=== PATIENT | male | born 1960 | race Caucasian/White ===

== ENCOUNTER 2019-11-01 23:26 | Observation (INO) ==
[2019-11-01] MEDS ORDERED: Amiodarone Premix 360 MG/200 ML BAG IVC ONE (23:51)
[2019-11-02] MEDS ORDERED: Amiodarone Premix 360 MG/200 ML BAG IVC ONE (00:06)
[2019-11-02 00:31] LABS: Basophils # 0.1 K/mcL (0.0-0.2); Basophils % 0.4 %; Eosinophils # 0.2 K/mcL (0.0-0.6); Eosinophils % 1.6 %; Hematocrit 46.1 % (37.5-50.1); Hemoglobin 15.8 g/dL (12.9-16.9); Immature Granulocytes % 0.4 % (0-4); Lymphocytes # 1.9 K/mcL (0.6-4.6); Lymphocytes % 15.4 %; Mean Corpuscular HGB Conc 34.3 g/dL (31.6-35.5); Mean Corpuscular Hemoglobin 31.2 pg (28.0-33.3); Mean Corpuscular Volume 90.9 fL (83.0-100.0); Monocytes # 0.7 K/mcL (0.0-1.3); Monocytes % 5.7 %; Neutrophils # 9.4 K/mcL (1.6-8.9); Platelet Count 119 K/mcL (140-400); Red Blood Count 5.07 M/mcL (4.19-5.50); Red Cell Distribution Width 13.3 % (11.5-14.5); Segmented Neutrophils % 76.5 %; White Blood Count 12.2 K/mcL (4.3-11.1)
[2019-11-02 00:36] LABS: INR 1.1; Prothrombin Time 12.3 Seconds (9.4-12.1)
[2019-11-02 00:39] LABS: Activated Partial Thrombo Time 37.1 Seconds (26.0-36.0)
[2019-11-02 00:50] LABS: BUN/Creatinine Ratio 20 (6-26); Blood Urea Nitrogen 26 mg/dL (8-23); Calcium 8.6 mg/dL (8.6-10.3); Carbon Dioxide 21 mEq/L (23-29); Chloride 95 mEq/L (98-107); Glucose 456 mg/dL (70-105); Osmolality,Calculated 299 (280-300); Potassium 3.5 mEq/L (3.5-5.1); Sodium 132 mEq/L (136-145); eGFR For African Americans > 60 (> 60); eGFR For Non-African Americans 56 (> 60)
[2019-11-02 02:14] LABS: Bilirubin,Urine Negative (Negative); Blood,Urine Negative (Negative); Clarity,Urine Clear (Clear); Color,Urine Yellow (Yellow); Glucose,Urine (UA) Normal (Normal); Ketones,Urine Negative (Negative); Leukocyte Esterase,Urine Small (Negative); Nitrite,Urine Negative (Negative); PH,Urine 5.5 pH Units (5.0-8.0); Protein,Urine 30 mg/dL (Neg-Trace); Specific Gravity,Urine 1.019 (1.010-1.025); Urobilinogen,Urine Normal (Normal)
[2019-11-02 02:16] LABS: Bacteria,Urine None Seen per hpf (None-Few); Hyaline Casts,Urine None Seen per lpf (None-Few); RBC,Urine 0-3 per hpf (0-3); Squamous Epithelial Cell,Urine Many per lpf (None-Few)
[2019-11-02 03:18] LABS: VBG HCO3 26 mEq/L (21-27); VBG PCO2 51 mmHg (41-51); VBG PH 7.31 pH Units (7.32-7.42); VBG PO2 62 mmHg (25-50)
[2019-11-02] MEDS ORDERED: Potassium Chloride Elixir 20 MEQ/15 ML UDC PO ONE (05:00)
[2019-11-02] MEDS ORDERED: Ondansetron 4 MG/2 ML VIAL IVP PRN (06:04)
[2019-11-02] MEDS ORDERED: Naloxone 0.4 MG/ML INJ IVP PRN (06:04)
[2019-11-02] MEDS ORDERED: D5% in Water 1,000 ML IVC PRN (06:10)
[2019-11-02] MEDS ORDERED: Dextrose Gel 15 GM/37.5 ML TUBE PO PRN ×2 (06:10)
[2019-11-02] MEDS ORDERED: *HR* Dextrose 50 % in Water (Syg) 50 ML SYRINGE IVP PRN (06:10)
[2019-11-02] MEDS: 0.9 % Sodium Chloride 1,000 ML IVC SCH ×3 (06:12→08:00)
[2019-11-02 06:23] LABS: Basophils # 0.1 K/mcL (0.0-0.2); Basophils % 0.5 %; Eosinophils # 0.2 K/mcL (0.0-0.6); Eosinophils % 1.6 %; Hematocrit 47.9 % (37.5-50.1); Hemoglobin 16.5 g/dL (12.9-16.9); Immature Granulocytes % 0.4 % (0-4); Lymphocytes # 2.9 K/mcL (0.6-4.6); Lymphocytes % 28.1 %; Mean Corpuscular HGB Conc 34.4 g/dL (31.6-35.5); Mean Corpuscular Hemoglobin 30.6 pg (28.0-33.3); Mean Corpuscular Volume 88.9 fL (83.0-100.0); Mean Platelet Volume 10.5 fL (9.4-12.4); Monocytes # 0.7 K/mcL (0.0-1.3); Monocytes % 6.3 %; Neutrophils # 6.6 K/mcL (1.6-8.9); Platelet Count 129 K/mcL (140-400); Red Blood Count 5.39 M/mcL (4.19-5.50); Red Cell Distribution Width 13.4 % (11.5-14.5); Segmented Neutrophils % 63.1 %; White Blood Count 10.4 K/mcL (4.3-11.1)
[2019-11-02 06:30] LABS: Prothrombin Time 11.3 Seconds (9.4-12.1)
[2019-11-02] MEDS: Amiodarone Premix 360 MG/200 ML BAG IVC SCH ×2 (06:30→17:54)
[2019-11-02 06:44] LABS: Albumin 4.4 g/dL (3.5-5.7); Albumin/Globulin Ratio 1.9 (1.1-2.2); Bilirubin,Total 0.6 mg/dL (0.3-1.0); Calcium 9.3 mg/dL (8.6-10.3); Chol/HDL Ratio 4.9 (0-4.9); Globulin 2.3 g/dL (2.4-3.5); Magnesium 1.9 mg/dL (1.6-2.6); Phosphorous 4.1 mg/dL (2.7-4.5); Potassium 3.9 mEq/L (3.5-5.1); Total Protein 6.7 g/dL (6.4-8.9)
[2019-11-02] MEDS ORDERED: *HR* Heparin 5,000 UNIT/ML VIAL IVP PRN ×2 (06:59)
[2019-11-02] MEDS ORDERED: *HR* Heparin 5,000 UNIT/ML VIAL IVP ONE (06:59)
[2019-11-02] MEDS ORDERED: Heparin 25,000 UNIT/250 ML D5W 25,000 UNIT/250 ML IV.SOLN IVC SCH (07:00)
[2019-11-02] MEDS: Insulin LISPRO 300 UNITS/3 ML VIAL SQ SCH ×3 (08:10→15:25)
[2019-11-02] MEDS ORDERED: Perflutren Lipid Microsphere 1.3 ML in 0.9 % Sodium Chloride 8.7 ML IVP ONE (08:37)
[2019-11-02] MEDS ORDERED: Aspirin 81 MG TAB.CHEW PO SCH (09:00)
[2019-11-02] MEDS ORDERED: *HR* Heparin 10,000 UNIT/10 ML VIAL ONE (12:29)
[2019-11-02] MEDS ORDERED: Nitroglycerin 1,000 MCG/10 ML VIAL IV ONE ×2 (12:29→12:35)
[2019-11-02] MEDS ORDERED: 0.9 % Sodium Chloride 2,000 ML ONE (12:29)
[2019-11-02] MEDS ORDERED: ISOVUE-370 200 ML INFUS..BTL ONE (12:29)
[2019-11-02] MEDS ORDERED: Heparin 1,000 UNITS/500 mL 500 ML ONE (12:29)
[2019-11-02] MEDS ORDERED: *HR* Midazolam HCl 2 MG/2 ML VIAL ONE (12:46)
[2019-11-02] MEDS ORDERED: *HR* FentaNYL (PF) 100 MCG/2 ML VIAL ONE (12:46)
[2019-11-02] MEDS ORDERED: *HR* Heparin 5,000 UNIT/ML VIAL SQ SCH (14:00)
[2019-11-02 17:36] VITALS: BP 123/69
[2019-11-02] MEDS ORDERED: Insulin LISPRO 300 UNITS/3 ML VIAL SQ SCH (21:00)
== END 2019-11-02 18:31 | disposition short-term general hospital (02) ==
LOC: ICNU 23:26 → EMEROOARM 23:26 → ICNU 11-02 05:52
PROVIDERS: ADMIT Student in an Organized Health Care Education/Training Program; ATTEND Student in an Organized Health Care Education/Training Program